=== PATIENT | female | born 1965 | race Asian ===

== ENCOUNTER 2024-12-21 10:12 | Inpatient (IN) | payer OTHER ==
[~2024-12-21] VITALS: Ht 157.5 cm; Wt 49.9 kg
[~2024-12-21 10:12] MED LIST: CEPHALEXIN500 MG PO; FLOMAX0.4 MG PO; KETOROLAC TROME10 MG PO; ONDANSETRON ODT4 MG PO
[2024-12-21 10:30] VITALS: RESP 18; TEMP 97.6
[2024-12-21 11:25] LABS: BASOPHILS # (AUTO) 0.1 (0.0-0.1); BASOPHILS % 0.8 % (0.0-1.0); EOSINOPHILS # (AUTO) 0.1 (0.0-0.4); EOSINOPHILS % 1.2 % (0.0-6.0); HEMATOCRIT 46.2 % (34.2-44.1); HEMOGLOBIN 15.1 g/dL (12.0-16.0); LYMPHOCYTES # (AUTO) 1.8 (1.0-3.2); LYMPHOCYTES % 30.2 % (18.0-39.1); MEAN CORPUSCULAR HEMOGLOBIN 28.3 pg (28-32); MEAN CORPUSCULAR HGB CONC 32.7 g/dL (31-35); MEAN CORPUSCULAR VOLUME 86.7 fL (81-99); MONOCYTES # (AUTO) 0.4 (0.2-0.8); MONOCYTES % 5.9 % (4.4-11.3); NEUTROPHILS # (AUTO) 3.7 (2.1-6.9); NEUTROPHILS % 61.7 % (38.7-80.0); PLATELET COUNT 258 x10e3/uL (140-360); RED BLOOD COUNT 5.33 x10e6/uL (3.6-5.1); RED CELL DISTRIBUTION WIDTH 13.8 % (11.7-14.4); WHITE BLOOD COUNT 5.96 x10e3/uL (4.8-10.8)
[2024-12-21 11:33] LABS: BILIRUBIN,URINE NEGATIVE (NEGATIVE); CLARITY,URINE CLEAR (CLEAR); COLOR,URINE YELLOW (YELLOW); GLUCOSE, URINE NEGATIVE (NEGATIVE); KETONES,URINE NEGATIVE (NEGATIVE); LEUKOCYTE ESTERASE ,URINE TRACE (NEGATIVE); NITRITE,URINE NEGATIVE (NEGATIVE); PH,URINE 6.5 (5 - 7); PROTEIN,URINE DIPSTICK NEGATIVE (NEGATIVE); URINE UROBILINOGEN 0.2 mg/dL (0.2 - 1)
[2024-12-21 11:43] LABS: ALBUMIN 3.7 g/dL (3.5-5.0); BILIRUBIN,TOTAL 0.5 mg/dL (0.2-1.2); CALCIUM 8.9 mg/dL (8.4-10.2); CREATININE, SERUM 0.79 mg/dL (0.57-1.11); TOTAL PROTEIN 7.4 g/dL (6.5-8.1)
[2024-12-21 11:49] LABS: BACTERIA,URINE FEW /HPF; EPITHELIAL CELLS,URINE FEW /LPF
[2024-12-21] MEDS: SODIUM CHLORIDE 0.9% 1000ML 1,000 ML IV STA (11:49)
[2024-12-21] MEDS ORDERED: Morphine 4mg INJECTION 4 MG/ML INJ IV PRN (13:45)
[2024-12-21] MEDS ORDERED: ONDANSETRON HCL INJ 2MG/ML 2ML 2 MG/ML VIAL IV PRN (13:45)
[2024-12-21] MEDS: SODIUM CHLORIDE 0.9% 1000ML 1,000 ML IV SCH (14:20)
[2024-12-21 17:00] VITALS: PULSE 82
[2024-12-21 20:00] VITALS: BP 119/78; PULSE 84; RESP 18; TEMP 98.2; O2SAT 100
[2024-12-21 21:00] VITALS: BP 119/78; PULSE 84; RESP 18; TEMP 98.2; O2SAT 100
[2024-12-22] VITALS: BP 125/75; PULSE 71; RESP 18; TEMP 97.8; O2SAT 100
[2024-12-22 05:00] LABS: BASOPHILS % 0.7 % (0.0-1.0); EOSINOPHILS # (AUTO) 0.2 (0.0-0.4); EOSINOPHILS % 2.7 % (0.0-6.0); HEMATOCRIT 37.6 % (34.2-44.1); HEMOGLOBIN 12.1 g/dL (12.0-16.0); LYMPHOCYTES # (AUTO) 1.9 (1.0-3.2); MEAN CORPUSCULAR HGB CONC 32.2 g/dL (31-35); MONOCYTES # (AUTO) 0.5 (0.2-0.8); MONOCYTES % 8.2 % (4.4-11.3); NEUTROPHILS # (AUTO) 3.4 (2.1-6.9); NEUTROPHILS % 57.2 % (38.7-80.0); PLATELET COUNT 239 x10e3/uL (140-360); RED BLOOD COUNT 4.32 x10e6/uL (3.6-5.1); WHITE BLOOD COUNT 5.96 x10e3/uL (4.8-10.8)
[2024-12-22 05:03] VITALS: BP 117/61; PULSE 70; RESP 16; TEMP 98.2; O2SAT 99
[2024-12-22 05:20] LABS: ANION GAP 12.9 mmol/L (8-16); BILIRUBIN,TOTAL 0.2 mg/dL (0.2-1.2); CREATININE, SERUM 0.7 mg/dL (0.57-1.11); POTASSIUM 3.9 mmol/L (3.5-5.1)
[2024-12-22 09:00] VITALS: BP 137/75; PULSE 86; RESP 18; TEMP 98.2; O2SAT 100
[2024-12-22 09:03] VITALS: BP 137/75; PULSE 86; RESP 18; TEMP 98.2; O2SAT 100
[2024-12-22 11:30] VITALS: BP 129/75; PULSE 72; RESP 18; TEMP 98; O2SAT 100
== END 2024-12-22 13:16 | disposition home or self-care (01) | DRG 690 ==
LOC: ER 10:34 → ERHOLD 13:36 → MED/SURG 19:30
PROVIDERS: ADMIT Internal Medicine; ATTEND Internal Medicine
DX: N13.6 Pyonephrosis (principal); E86.0 Dehydration; R31.29 Other microscopic hematuria; I10 Essential (primary) hypertension; Z71.81 Spiritual or religious counseling; Z79.899 Other long term (current) drug therapy
CPT/HCPCS: 36415; 74018; 74176; 80053; 81001; 85025; 87086; 99284; J0696; J7030